=== PATIENT | male | born 1995 | race Two or more races ===

== ENCOUNTER 2017-02-27 14:23 | Emergency (ER) | payer SELFPAY ==
[~2017-02-27] VITALS: Ht 177.8 cm; Wt 85.3 kg
--- NOTE | 2017-02-27 14:23 | Emergency Room Report ---
History of Present Illness General Chief Complaint: Seizure Source: Patient Present Illness HPI Patient's 23-year-old male who presented after a witnessed seizure. The patient had a brief tonic clonic seizure per EMS patient has prior history of seizure disorder. The patient cannot state with a seizure medications are. Patient continued to be postictal during transport. Patient had adequate blood sugar greater than 160. The patient denies any current complaints. Allergies: Coded Allergies: No Known Allergies (Unverified , 02/27/17) Patient History Past Medical History: see triage record Reviewed Nursing Documentation: PMH: Agreed, PSxH: Agreed Nursing Documentation-PMH Past Medical History: No Stated History Review of Systems All Other Systems: negative except mentioned in HPI Physical Exam Vital Signs Date Time Temp Pulse Resp B/P Pulse Ox O2 Delivery O2 Flow Rate FiO2 02/27/17 14:15 101 18 128/88 99 Sp02 EP Interpretation: reviewed, normal General Appearance: normal inspection, well appearing, no apparent distress, alert, GCS 15 Head: atraumatic ENT: normal ENT inspection, hearing grossly normal, normal voice Neck: normal inspection, full range of motion, supple, no bony tend Respiratory: normal inspection, lungs clear, normal breath sounds, no respiratory distress, no retraction, no wheezing Cardiovascular #1: regular rate, rhythm, no edema Gastrointestinal: normal inspection, normal bowel sounds, non tender, soft, no guarding, no hernia Genitourinary: no CVA tenderness Musculoskeletal: normal inspection, back normal, normal range of motion Neurologic: normal inspection, alert, responsive, hydraulic billet maker III-XII nml as tested, speech normal Psychiatric: normal inspection, judgement/insight normal, mood/affect normal Skin: normal inspection, normal color, no rash Medical Decision Making Diagnostic Impression: Primary Impression: Epileptic seizure, generalized Additional Impression: Seizure disorder ER Course Patient presented for seizure. Differential diagnosis included cysticercosis, electrolyte abnormality, medication noncompliance, mass lesion, or cranial hemorrhage.Because of complexity of patient's case laboratory testing and imaging studies were ordered. Last Vital Signs Date Time Temp Pulse Resp B/P Pulse Ox O2 Delivery O2 Flow Rate FiO2 02/27/17 14:15 101 18 128/88 99 Steven Macario Feb 27, 2017 14:23
[2017-02-27 14:44] VITALS: BP 128/88
[2017-02-27] MEDS ORDERED: levETIRAcetam 500 MG in D5W 110 ML IV ONE (14:45)
[2017-02-27] MEDS ORDERED: LORazepam Inj 2mg/ml 1ml IV ONE (14:45)
[2017-02-27] MEDS ORDERED: levETIRAcetam 500mg vial IV ONE (14:49)
[2017-02-27 15:02] LABS: BASOPHILS % (AUTO) 1.5 % (0.0-2.0); EOSINOPHILS % (AUTO) 4.4 % (0.0-3.0); LYMPHOCYTES % (AUTO) 33.8 % (20.0-45.0); MEAN CORPUSCULAR HEMOGLOBIN 31.6 PG (27.0-31.0); MEAN CORPUSCULAR HGB CONC 32.9 G/DL (32.0-36.0); MEAN CORPUSCULAR VOLUME 96 FL (80-99); MEAN PLATELET VOLUME 9.1 FL (6.5-10.1); MONOCYTES % (AUTO) 8.1 % (1.0-10.0); NEUTROPHILS % (AUTO) 52.2 % (45.0-75.0); PLATELET COUNT 235 K/UL (150-450); RED BLOOD COUNT 5.29 M/UL (4.70-6.10); RED CELL DISTRIBUTION WIDTH 11.3 % (11.6-14.8)
[2017-02-27 15:18] LABS: ALANINE AMINOTRANSFERASE 12 U/L (3-41); ANION GAP 24 (5-15); ASPARTATE AMINO TRANSFERASE 17 U/L (5-40); CALCIUM 9.7 mg/dL (8.6-10.2); CARBON DIOXIDE 17 mEQ/L (20-30); CHLORIDE 101 mEQ/L (98-107); GLOMERULAR FILTRATION RATE > 60 mL/min (>60); HEMOLYSIS 9; POTASSIUM 3.7 mEQ/L (3.4-4.9); SODIUM 142 mEQ/L (135-145); TOTAL PROTEIN 7.2 g/dL (6.6-8.7)
[2017-02-27] MEDS ORDERED: KEPPRA500 M4 ORAL (16:13)
[2017-02-27 16:37] VITALS: BP 116/68
== END 2017-02-27 16:40 | disposition home or self-care (01) ==
LOC: EDBD 14:23 → EMR 14:46
DX: G40.409 Other generalized epilepsy and epileptic syndromes, not intractable, without status epilepticus (principal)
CPT/HCPCS: 36415; 80053; 80184; 80185; 80300; 85025; 96360; 96374; 96375; 99284; J1953